=== PATIENT | male | born 1970 | race Two or more races ===

== ENCOUNTER 2019-09-16 16:26 | Emergency (ER) | payer OTHER ==
--- NOTE | 2019-09-16 17:35 | ED Physician Documentation ---
PD HPI OPHTHO - Stated complaint Stated Complaint: LT EYE INJ - Chief complaint Chief Complaint: Heent - History obtained from History obtained from: Patient (Through an framing inspector) - History of Present Illness Timing - onset: Enter time (11 AM) Timing - details: Abrupt onset Pain level now: 2 Location: Left Associated symptoms: Tearing, FB sensation, Photophobia Contributing factors: FB, Irrigated [employer]. 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 While at work they flushed his eye out a little bit and put some "drops" into his left eye. Since then he has had increasing sensation of a foreign body into his left eye mainly under the left upper lid, and photosensitivity with increased tearing. He denies any loss of vision, blurry vision, purulent eye discharge. He has no o ther concerns today Review of Systems Constitutional: reports: Reviewed and negative Eyes: reports: Photophobia, Irritation Ears: reports: Reviewed and negative Nose: reports: Reviewed and negative Throat: reports: Reviewed and negative Cardiac: reports: Reviewed and negative Respiratory: reports: Reviewed and negative GI: reports: Reviewed and negative PD PAST MEDICAL HISTORY - Past Medical History Past Medical History: No - Past Surgical History Past Surgical History: No - Present Medications Home Medications: Ambulatory Orders Medication Instructions Recorded Confirmed No Known Home Medications 09/16/19 09/16/19 - Allergies Allergies/Adverse Reactions: Allergies Allergy/AdvReac Type Severity Reaction Status Date / Time No Known Drug Allergies Allergy Verified 09/16/19 16:51 - Social History Does the pt smoke?: Yes Smoking Status: Current every day smoker Does the pt have substance abuse?: No - Immunizations Immunizations are current?: Yes PD ED PE NORMAL - General General: Alert and oriented X 3, No acute distress - HEENT HEENT: Atraumatic, PERRL, EOMI, Moist mucous membranes - Neck Neck: No adenopathy - Respiratory Respiratory: No respiratory distress - Abdomen Abdomen: Soft, Non distended - Neuro Neuro: Alert and oriented X 3 PD ED PE EXPANDED - Eyes Eyes: PERRL, Normal accommodation, Left eye, Normal eyelids, No eyelid FB (everted), Nl conjunctiva/sclera, Normal corneas. No: Exudate, Fluorescein uptake, Hyphema Results - Vitals Vitals: Vital Signs - 24 hr 09/16/19 16:39 Temperature 36.9 C Heart Rate 73 Respiratory 16 Rate Blood Pressure 132/89 H O2 Saturation 98 Oxygen O2 Source Room air Procedures - General procedure General procedure: The left eye was anesthetized using proparacaine, and fluorescein stain was used and examined under black light. There is no uptake of the fluorescein stain noted to the left cornea. No foreign body was visualized. Left eye was flushed out using a Neri lens and at least 500 cc of saline. PD MEDICAL DECISION MAKING - ED course Complexity details: considered differential, d/w patient ED course: Left eye was examined using fluorescein stain, there is no uptake of stain to cornea. Left eye was then flushed using a Neri lens with about 500 mL's of saline. Discharge instructions were provided to the patient to take ibuprofen today and tomorrow to help with pain. Instructions were given to him should he have increased blurry vision, loss of vision, increased eye pain, that he is return to the ER for further evaluation or he can follow-up with an system admin. Patient verbalized understanding through an framing inspector.. Departure - Departure Disposition: 01 Home, Self Care Clinical Impression: Left eye injury Qualifiers: Encounter type: initial encounter Qualified Code(s): S05.92XA - Unspecified injury of left eye and orbit, initial encounter Condition: Good Instructions: ED Foreign Body Cornea Print Language: Icelandic Comments: You can use ibuprofen for pain in your eye. Take it as directed on the bottle. Your exam today showed that there is no scratch on your eye (cornea). We flushed your eye out really good today in hopes that any foreign body that may have been in there is now gone. If you have any change in vision, loss of vision, worsening pain to the left eye follow-up with your primary care or welcome to come back to the ER for further evaluation.
[2019-09-16 18:36] VITALS: BP 122/86
== END 2019-09-16 18:35 | disposition home or self-care (01) ==
LOC: ED 16:26
DX: S05.92XA Unspecified injury of left eye and orbit, initial encounter (principal); X58.XXXA Exposure to other specified factors, initial encounter; Y93.89 Activity, other specified; Y92.89 Other specified places as the place of occurrence of the external cause; Y99.0 Civilian activity done for income or pay; F17.200 Nicotine dependence, unspecified, uncomplicated
CPT/HCPCS: 1040M; 99282